=== PATIENT | male | born 1970 | race Caucasian/White ===

== ENCOUNTER → 2016-08-04 | Outpatient (CLI) | payer BC ==
[~2016-08-04] MED LIST: Co Q10 PO; GEMF600T PO
--- NOTE | 2016-08-04 14:10 | DIAGNOSTIC IMAGING REPORT ---
CHEST 2 VIEWS ROUTINE CLINICAL HISTORY: Acute bronchitis with bronchospasm Cough COMPARISON STUDY: No previous studies for comparison. FINDINGS: The bones soft tissues and hemidiaphragms are normal. The cardiomediastinal silhouette is normal. The lungs are clear. The pulmonary vasculature is normal. IMPRESSION: Negative chest. Electronically signed by: Boby Alvarado M.D. 08/04/2016 2:08 PM Dictated Date/Time: 08/04/2016 2:04 PM
[2016-08-16 17:11] LABS: BORDETELLA PERTUSSIS PT IGA <1 IU/mL
== END | disposition home or self-care (01) ==
LOC: C.RADPV 13:47
PROVIDERS: ATTEND Nurse Practitioner
DX: J20.9 Acute bronchitis, unspecified (principal); R05 Cough

== ENCOUNTER 2017-10-05 14:15 | Emergency (ER) | payer BC ==
[~2017-10-05] VITALS: Ht 182.9 cm; Wt 108.5 kg
[2017-10-05 14:17] VITALS: Ht 182.9 cm; Wt 108.5 kg
[2017-10-05] MEDS ORDERED: KETOROLAC TROMETHAMINE 30 MG/ML VIAL IV STA (14:27)
[2017-10-05] MEDS ORDERED: SODIUM CHLORIDE 0.9% 1000ML 1,000 ML IV STA (14:27)
[2017-10-05] MEDS ORDERED: ONDANSETRON INJ 2 MG/ML 2 ML VIAL IV STA (14:27)
[2017-10-05 15:09] LABS: EOS % 0.5 %; EOS ABS # 0.03 K/uL (0-0.5); HEMATOCRIT 39.3 % (42-52); HEMOGLOBIN 14.5 g/dL (14.0-18.0); IG# 0.02 K/uL (0.00-0.02); LYMPH % 26.9 %; LYMPH ABS # 1.47 K/uL (1.2-3.4); MEAN CELL VOLUME 89.3 fL (80-100); MEAN CORPUSCULAR HGB CONC 36.9 g/dl (32-36); MEAN PLATELET VOLUME 11.6 fL (7.4-10.4); MONO % 5.3 %; MONO ABS # 0.29 K/uL (0.11-0.59); NEUT % 66.9 %; NEUT ABS # 3.66 K/uL (1.4-6.5); PLATELET COUNT 195 K/uL (130-400); RED CELL DISTRIBUTION WIDTH CV 13.3 % (11.5-14.5); RED CELL DISTRIBUTION WIDTH SD 43.2 fL (36.4-46.3); WHITE BLOOD COUNT 5.47 K/uL (4.8-10.8)
[2017-10-05 15:30] LABS: ALKALINE PHOSPHATASE 43 U/L (45-117); ALT/SGPT 40 U/L (12-78); AST/SGOT 27 U/L (15-37); BLOOD UREA NITROGEN 11 mg/dl (7-18); CARBON DIOXIDE 25 mmol/L (21-32); CREATININE 1.05 mg/dl (0.60-1.40); GLUCOSE 156 mg/dl (70-99); LIPASE 112 U/L (73-393); POTASSIUM 3.3 mmol/L (3.5-5.1); SODIUM 140 mmol/L (136-145); TOTAL PROTEIN 6.9 gm/dl (6.4-8.2)
--- NOTE | 2017-10-05 15:41 | DIAGNOSTIC IMAGING REPORT ---
CT SCAN OF THE ABDOMEN AND PELVIS WITHOUT CONTRAST CLINICAL HISTORY: Right flank pain COMPARISON STUDY: 2007 TECHNIQUE: CT scan of the abdomen and pelvis was performed from the lung bases to the proximal femurs. Images are reviewed in the axial, sagittal, and coronal planes. IV contrast was not administered for this examination. A dose lowering technique was utilized adhering to the principles of ALARA. CT DOSE: 1164.63 mGycm FINDINGS: Lower chest: There are mild dependent atelectatic changes. Liver: There is a subtle 14 mm hypodensity within the right lobe of the liver just beneath the hepatic dome. This was not visualized with certainty on the preceding study, and is therefore indeterminate. Gallbladder: Unremarkable. Spleen: Normal in size and attenuation. Pancreas: Unremarkable. Adrenal glands: Unremarkable. Kidneys: There is minor bilateral perinephric stranding. No renal calculi are visualized. There is minimal fullness the right renal collecting system. There is a 2.5 mm distal right ureteral calculus. This appears to be chronic as this remain similar to the preceding 2008 study. Bowel: There are no transition zones indicate bowel obstruction. The appendix appears normal. There is no acute diverticulitis. Peritoneum: There is no intraperitoneal free air or abdominal ascites. Vasculature: The abdominal aorta is normal in course and caliber. There are stable small varices/collaterals medial to the left kidney. Adenopathy: None. Pelvic viscera: The bladder, and pelvic viscera are unremarkable. Skeletal structures: No destructive osseous lesions are seen. IMPRESSION: 1. 2.5 mm distal right ureteral calculus. This appears nearly identical to the prior 2008 study and therefore may be chronic. 2. No evidence of bowel obstruction. No evidence of free air 3. Normal appendix. No evidence of acute diverticulitis 4. Very subtle indeterminate 14 mm hypodensity within the right lobe of the liver Electronically signed by: Stephen Gonzalez M.D. 10/05/2017 3:40 PM Dictated Date/Time: 10/05/2017 3:32 PM
[2017-10-05] MEDS ORDERED: OXYC1TAB3 PO (16:09)
[2017-10-05] MEDS ORDERED: TAMS0.4C38 PO (16:09)
[2017-10-05 16:20] VITALS: BP 143/74; PULSE 86; TEMP 36.9; O2SAT 98
--- NOTE | 2017-10-05 19:06 | EMERGENCY ROOM VISIT NOTE ---
History Report prepared by Kristopher: David Jha Under the Supervision of: Dr. Jem Angel D.O. First contact with patient: 14:21 Chief Complaint: FLANK PAIN Stated Complaint: PAIN IN GROIN History of Present Illness The patient is a 47 year old male with a history of kidney stones who presents to the Emergency Room with complaints of intermittent right flank pain that started a couple days ago. He states that the pain radiates downward into his right testicle. He adds that the pain radiates into his back. He says that last night the pain worsened. The patient notes that when he has the pain, he feels like he needs to urinate but he is unable to. He says that he drank a lot of water last night, which lessened the pain and allowed him to fall back asleep. The patient states that he felt okay when he woke up this morning. He had a normal bowel movement and urinated as well, but an hour ago, the pain came back and it was terrible on the way here. He says that just urinated in the room and feels okay, but still has the urgency to urinate. The patient notes that had kidney stones 15 years ago. He still has all his major abdominal organs, and his only surgery was a hernia. Source of History: patient Onset: A couple days ago Position: other (right flank) Symptom Intensity: terrible on way here Quality: other (pain) Timing: intermittent Modifying Factors (Relieving): other (drinking water) Associated Symptoms: + abdominal pain, + back pain, + urinary symptoms Note: Associated symptoms: Right testicle pain. Review of Systems See HPI for pertinent positives & negatives. A total of 10 systems reviewed and were otherwise negative. Past Medical & Surgical Medical Problems: (1) Kidney stone (2) No chronic diseases present Family History Cancer Social History Smoking Status: Never Smoker Alcohol Use: occasionally Marital Status: Occupation Status: employed Current/Historical Medications Scheduled Gemfibrozil (Lopid), 600 MG PO DAILY Tamsulosin Hcl (Flomax), 0.4 MG PO DAILY Scheduled PRN Oxycodone Immediate Rel Tab (Roxicodone Ir), 5 MG PO Q6H PRN for Pain Allergies Coded Allergies: Moxifloxacin (Verified Allergy, Unknown, RASH, 02/05/15) Physical Exam Vital Signs Date Time Temp Pulse Resp B/P (MAP) Pulse Ox O2 Delivery O2 Flow Rate FiO2 10/05/17 16:20 36.9 86 18 143/74 98 10/05/17 15:45 86 18 143/74 98 Room Air 10/05/17 14:17 36.9 83 16 96 Room Air Physical Exam GENERAL: Sitting up in bed, no acute distress, nontoxic EYE EXAM: normal conjunctiva. OROPHARYNX: no exudate, no erythema, lips, buccal mucosa, and tongue normal and mucous membranes are moist NECK: supple, no nuchal rigidity, no adenopathy, non-tender LUNGS: Clear to auscultation. Normal chest wall mechanics HEART: no murmurs, S1 normal and S2 normal ABDOMEN: abdomen soft, non-tender, normo-active bowel sounds, no masses, no rebound or guarding. : Normal external genitalia. No penile discharge, no testicular masses. BACK: Back is symmetrical on inspection and there is no deformity, no midline tenderness, no CVA tenderness. SKIN: no rashes and no bruising UPPER EXTREMITIES: upper extremities are grossly normal. LOWER EXTREMITIES: No pitting edema. NEURO EXAM: Normal sensorium, cranial nerves II-XII grossly intact, normal speech, no gross weakness of arms, no gross weakness of legs. Medical Decision & Procedures ER Provider Diagnostic Interpretation: CT:Per my review, radiologist interpretation. CT SCAN OF THE ABDOMEN AND PELVIS WITHOUT CONTRAST CLINICAL HISTORY: Right flank pain COMPARISON STUDY: 2007 TECHNIQUE: CT scan of the abdomen and pelvis was performed from the lung bases to the proximal femurs. Images are reviewed in the axial, sagittal, and coronal planes. IV contrast was not administered for this examination. A dose lowering technique was utilized adhering to the principles of ALARA. CT DOSE: 1164.63 mGycm FINDINGS: Lower chest: There are mild dependent atelectatic changes. Liver: There is a subtle 14 mm hypodensity within the right lobe of the liver just beneath the hepatic dome. This was not visualized with certainty on the preceding study, and is therefore indeterminate. Gallbladder: Unremarkable. Spleen: Normal in size and attenuation. Pancreas: Unremarkable. Adrenal glands: Unremarkable. Kidneys: There is minor bilateral perinephric stranding. No renal calculi are visualized. There is minimal fullness the right renal collecting system. There is a 2.5 mm distal right ureteral calculus. This appears to be chronic as this remain similar to the preceding 2007 study. Bowel: There are no transition zones indicate bowel obstruction. The appendix appears normal. There is no acute diverticulitis. Peritoneum: There is no intraperitoneal free air or abdominal ascites. Vasculature: The abdominal aorta is normal in course and caliber. There are stable small varices/collaterals medial to the left kidney. Adenopathy: None. Pelvic viscera: The bladder, and pelvic viscera are unremarkable. Skeletal structures: No destructive osseous lesions are seen. IMPRESSION: 1. 2.5 mm distal right ureteral calculus. This appears nearly identical to the prior 2007 study and therefore may be chronic. 2. No evidence of bowel obstruction. No evidence of free air 3. Normal appendix. No evidence of acute diverticulitis 4. Very subtle indeterminate 14 mm hypodensity within the right lobe of the liver Electronically signed by: Stephen Gonzalez M.D. 10/05/2017 3:40 PM Dictated Date/Time: 10/05/2017 3:32 PM Laboratory Results 10/05/17 14:45 Red Blood Count 4.40, Mean Corpuscular Volume 89.3, Mean Corpuscular Hemoglobin 33.0, Mean Corpuscular Hemoglobin Concent 36.9, Mean Platelet Volume 11.6, Neutrophils (%) (Auto) 66.9, Lymphocytes (%) (Auto) 26.9, Monocytes (%) (Auto) 5.3, Eosinophils (%) (Auto) 0.5, Basophils (%) (Auto) 0.0, Neutrophils # (Auto) 3.66, Lymphocytes # (Auto) 1.47, Monocytes # (Auto) 0.29, Eosinophils # (Auto) 0.03, Basophils # (Auto) 0.00 10/05/17 14:45 Test 10/05/17 14:45 10/05/17 15:56 White Blood Count 5.47 K/uL (4.8-10.8) Red Blood Count 4.40 M/uL (4.7-6.1) Hemoglobin 14.5 g/dL (14.0-18.0) Hematocrit 39.3 % (42-52) Mean Corpuscular Volume 89.3 fL (80-100) Mean Corpuscular Hemoglobin 33.0 pg (25-34) Mean Corpuscular Hemoglobin Concent 36.9 g/dl (32-36) Platelet Count 195 K/uL (130-400) Mean Platelet Volume 11.6 fL (7.4-10.4) Neutrophils (%) (Auto) 66.9 % Lymphocytes (%) (Auto) 26.9 % Monocytes (%) (Auto) 5.3 % Eosinophils (%) (Auto) 0.5 % Basophils (%) (Auto) 0.0 % Neutrophils # (Auto) 3.66 K/uL (1.4-6.5) Lymphocytes # (Auto) 1.47 K/uL (1.2-3.4) Monocytes # (Auto) 0.29 K/uL (0.11-0.59) Eosinophils # (Auto) 0.03 K/uL (0-0.5) Basophils # (Auto) 0.00 K/uL (0-0.2) RDW Standard Deviation 43.2 fL (36.4-46.3) RDW Coefficient of Variation 13.3 % (11.5-14.5) Immature Granulocyte % (Auto) 0.4 % Immature Granulocyte # (Auto) 0.02 K/uL (0.00-0.02) Anion Gap 9.0 mmol/L (3-11) Est Creatinine Clear Calc Drug Dose 111.9 ml/min Estimated GFR () 98.2 Estimated GFR (Non- 84.7 BUN/Creatinine Ratio 10.9 (10-20) Calcium Level 9.0 mg/dl (8.5-10.1) Total Bilirubin 0.4 mg/dl (0.2-1) Direct Bilirubin < 0.1 mg/dl (0-0.2) Aspartate Amino Transf (AST/SGOT) 27 U/L (15-37) Alanine Aminotransferase (ALT/SGPT) 40 U/L (12-78) Alkaline Phosphatase 43 U/L (45-117) Total Protein 6.9 gm/dl (6.4-8.2) Albumin 4.0 gm/dl (3.4-5.0) Lipase 112 U/L (73-393) Urine Color DK YELLOW Urine Appearance CLEAR (CLEAR) Urine pH 5.0 (4.5-7.5) Urine Specific [place] 1.023 (1.000-1.030) Urine Protein NEG (NEG) Urine Glucose (UA) NEG (NEG) Urine Ketones NEG (NEG) Urine Occult Blood 2+ (NEG) Urine Nitrite NEG (NEG) Urine Bilirubin NEG (NEG) Urine Urobilinogen NEG (NEG) Urine Leukocyte Esterase NEG (NEG) Urine WBC (Auto) 1-5 /hpf (0-5) Urine RBC (Auto) >30 /hpf (0-4) Urine Hyaline Casts (Auto) 1-5 /lpf (0-5) Urine Epithelial Cells (Auto) 5-10 /lpf (0-5) Urine Bacteria (Auto) NEG (NEG) Urine Crystals CALCIUM OXALATE (NONE Laboratory results per my review. Medications Administered Medications (Trade) Dose Ordered Sig/Aide Route Start Time Stop Time Status Last Admin Dose Admin Sodium Chloride 1,000 ml @ 999 mls/hr Q1H1M STAT IV 10/05/17 14:27 10/05/17 15:27 DC 10/05/17 15:16 999 MLS/HR Ondansetron HCl (Zofran Inj) 4 mg NOW STAT IV 10/05/17 14:27 10/05/17 14:29 DC 10/05/17 15:16 4 MG Ketorolac Tromethamine (Toradol Inj) 30 mg NOW STAT IV 10/05/17 14:27 10/05/17 14:29 DC 10/05/17 15:17 30 MG ED Course ED COURSE: Vital signs were reviewed and showed hypertensive situational vitals. The patients medical record was reviewed The above diagnostic studies were performed and reviewed. ED treatments and interventions as stated above. 1422: The patient was evaluated in room B9. A complete history and physical examination was performed. 1427: Toradol Inj 30 mg IV, Zofran Inj 4 mg IV, NSS 1000 ml @ 999 mls/hr IV. 1547: I reevaluated the patient and he feels great. 1625: Upon reevaluation, the patient is resting comfortably.I discussed my findings with the patient and he understands and agrees with the treatment plan. Based on the patients age, coexisting illnesses, exam and lab findings the decision to treat as an outpatient was made. The patient remained stable while under my care. The patient appeared well at the time of discharge. Medical Decision Differential diagnoses includes but is not limited to gastritis, peptic ulcer disease, GERD, gallbladder disease, pancreatitis, small bowel obstruction, acute coronary syndrome, pericarditis, ischemic bowel, irritable bowel disease, irritable bowel syndrome, appendicitis, diverticulitis, malignancy, hernia, urinary tract infection, torsion, perforation, trauma, infectious. Patient is a 47-year-old male who presents the ER for flank pain. CBC along with BMP, LFTs, bilirubin lipase was unremarkable. CT abdomen pelvis shows 2.5 distal right ureteral stone. He was given IV fluids and Toradol. If improvement of his pain. He was updated at bedside. UA was unremarkable. Patient was discharged to follow-up with urology as an outpatient with Flomax and OxyIR following review of PDMP. Discussed with Pt concerning signs and symptoms to watch out for. Pt was instructed to follow up with their PCP and discussed with the patient their option to return to the ED at anytime for persistent or worsening symptoms. The appropriate anticipatory guidance and out- patient management, including indications for return to the emergency department , were explained at length to the patient and understood. [place] Drug Monitoring Program Search Results: patient reviewed within database, no issues identified Medication Reconcilliation Current Medication List: was personally reviewed by me Blood Pressure Screening Patient's blood pressure: Elevated blood pressure Blood pressure disposition: Elevated BP felt to be situational Impression Primary Impression: Renal colic Scribe Attestation The scribe's documentation has been prepared under my direction and personally reviewed by me in its entirety. I confirm that the note above accurately reflects all work, treatment, procedures, and medical decision making performed by me. Departure Information Dispostion Home / Self-Care Prescriptions Oxycodone Immediate Rel Tab (ROXICODONE IR) 5 Mg Tab 5 MG PO Q6H Y for Pain, #15 TAB Prov: Jem Angel, DO 10/05/17 Tamsulosin Hcl (FLOMAX) 0.4 Mg Cap 0.4 MG PO DAILY, #10 CAP Prov: Jem Angel, DO 10/05/17 Referrals Irma Charles C.R.N.P (PCP) Patient Instructions My [facility] Additional Instructions Please follow up with your primary care doctor with in the next 24 hours. Any worsening of your symptoms, please return to the ED immediately. This includes any fevers greater than 100.4, worsening pain, chest pain, shortness breath, persistent nausea, vomiting, unable to eat or drink, or any other concerning signs or symptoms from your standpoint. You were given medications during this visit that will inhibit your ability to drive, operate machinery and work. Please do NOT drive, operate machinery or work for the next 12hrs. You were also given a prescription for a narcotic. While taking this medication you should also not drive, operate machinery and or work.
== END 2017-10-05 16:30 | disposition home or self-care (01) ==
LOC: C.EDB 14:16
DX: N20.1 Calculus of ureter (principal); N23 Unspecified renal colic; Z87.442 Personal history of urinary calculi; Z80.9 Family history of malignant neoplasm, unspecified; Z79.899 Other long term (current) drug therapy; Z88.1 Allergy status to other antibiotic agents